=== PATIENT | male | born 1955 | race Caucasian/White ===

== ENCOUNTER 2021-08-24 12:36 | Outpatient (REF) | payer BC, SELFPAY ==
[2021-08-24 16:19] LABS: COVID-19 Test Negative (Negative); IDNOW Serial# 16C4AD1C
== END 2021-08-24 12:37 | disposition home or self-care (01) ==
LOC: HO.LAB 12:36
PROVIDERS: Visit Provider Internal Medicine
DX: Z20.822 Contact with and (suspected) exposure to COVID-19 (principal)
CPT/HCPCS: 36415; 87635; C9803

== ENCOUNTER 2023-04-16 19:45 | Emergency (ER) | payer BC, SELFPAY ==
--- NOTE | ~2023-04-16 | CT_ITS ---
EXAMINATION: NONCONTRAST HEAD CT NONCONTRAST CERVICAL SPINE CT INDICATION INFORMATION: Fall with head strike COMPARISON: None TECHNIQUE: Separate noncontrast CT examinations of the head and cervical spine were performed. Coronal and sagittal images were created for each examination at the technologist workstation. This CT examination was performed using dose optimization techniques as appropriate, variously including the following: *Automated exposure control *Adjustment of mA and/or kV according to patient size (this includes techniques or standardized protocols for targeted exams where dose is matched to indication/reason for exam; i.e. extremities or head) *Use of iterative reconstruction technique DLP: 1111 mGy-cm FINDINGS: Head: There is no evidence of acute intracranial hemorrhage or territorial infarction. No abnormal mass effect or midline shift is seen. Pina to white matter differentiation is well preserved. No extra-axial fluid collections are identified. No hydrocephalus. No significant volume loss. There is no abnormal attenuation within the brain parenchyma. No acute osseous or soft tissue abnormality. The mastoid air cells are well aerated. Moderate diffuse paranasal sinus opacification. Cervical spine: There is anatomic alignment of the vertebral bodies and posterior elements. The atlantoaxial and atlantooccipital articulations are intact. Vertebral body heights and intervertebral disc spaces are maintained. No evidence of acute fracture. No prevertebral soft tissue swelling. Mild emphysema noted at the lung apices. Calcification in the right lobe of the thyroid gland. The thyroid gland is otherwise unremarkable. CT/CT cervical spine wo IV con IMPRESSION: 1. No acute intracranial finding. 2. No fracture or malalignment of the cervical spine.
--- NOTE | ~2023-04-16 | XR_ITS ---
EXAMINATION: XR hand RT 2V, XR elbow RT 2V CLINICAL INFORMATION: Reason for Exam fall COMPARISON: None. TECHNIQUE: 2 views, 3 images of the right elbow and 3 views of the right hand. FINDINGS: Right elbow: Mild diffuse osteopenia is noted involving all the visualized bones. The bony alignments are intact. The cortices are intact. Enthesopathy is noted at the insertional site of the triceps tendon to the olecranon process. No evidence of any joint effusion. Mild osteoarthropathy at the humeroulnar joint. Right hand: Mild diffuse osteopenia. Bony alignments are intact. The cortices are intact. Soft tissues are unremarkable. No radiopaque foreign body. XR/XR hand RT 2V IMPRESSION: 1. Mild diffuse osteopenia. 2. No radiographic evidence of any displaced fracture at the right elbow and right hand. 3. Incidental note is made of presence of enthesopathy at the insertional site of the triceps tendon to the olecranon process. 4. Mild osteoarthropathy of the humeroulnar joint.
--- NOTE | ~2023-04-16 | CT_ITS ---
EXAMINATION: NONCONTRAST HEAD CT NONCONTRAST CERVICAL SPINE CT INDICATION INFORMATION: Fall with head strike COMPARISON: None TECHNIQUE: Separate noncontrast CT examinations of the head and cervical spine were performed. Coronal and sagittal images were created for each examination at the technologist workstation. This CT examination was performed using dose optimization techniques as appropriate, variously including the following: *Automated exposure control *Adjustment of mA and/or kV according to patient size (this includes techniques or standardized protocols for targeted exams where dose is matched to indication/reason for exam; i.e. extremities or head) *Use of iterative reconstruction technique DLP: 1111 mGy-cm FINDINGS: Head: There is no evidence of acute intracranial hemorrhage or territorial infarction. No abnormal mass effect or midline shift is seen. Pina to white matter differentiation is well preserved. No extra-axial fluid collections are identified. No hydrocephalus. No significant volume loss. There is no abnormal attenuation within the brain parenchyma. No acute osseous or soft tissue abnormality. The mastoid air cells are well aerated. Moderate diffuse paranasal sinus opacification. Cervical spine: There is anatomic alignment of the vertebral bodies and posterior elements. The atlantoaxial and atlantooccipital articulations are intact. Vertebral body heights and intervertebral disc spaces are maintained. No evidence of acute fracture. No prevertebral soft tissue swelling. Mild emphysema noted at the lung apices. Calcification in the right lobe of the thyroid gland. The thyroid gland is otherwise unremarkable. CT/CT head/brain wo IV con IMPRESSION: 1. No acute intracranial finding. 2. No fracture or malalignment of the cervical spine.
--- NOTE | ~2023-04-16 | XR_ITS ---
EXAMINATION: XR hand RT 2V, XR elbow RT 2V CLINICAL INFORMATION: Reason for Exam fall COMPARISON: None. TECHNIQUE: 2 views, 3 images of the right elbow and 3 views of the right hand. FINDINGS: Right elbow: Mild diffuse osteopenia is noted involving all the visualized bones. The bony alignments are intact. The cortices are intact. Enthesopathy is noted at the insertional site of the triceps tendon to the olecranon process. No evidence of any joint effusion. Mild osteoarthropathy at the humeroulnar joint. Right hand: Mild diffuse osteopenia. Bony alignments are intact. The cortices are intact. Soft tissues are unremarkable. No radiopaque foreign body. XR/XR elbow RT 2V IMPRESSION: 1. Mild diffuse osteopenia. 2. No radiographic evidence of any displaced fracture at the right elbow and right hand. 3. Incidental note is made of presence of enthesopathy at the insertional site of the triceps tendon to the olecranon process. 4. Mild osteoarthropathy of the humeroulnar joint.
[2023-04-16 20:03] VITALS: BP 135/71; BP 140/86; PULSE 81; PULSE 82; RESP 16; TEMP 36.6; O2SAT 97; O2SAT 98; BMI 25.8
[2023-04-16 20:08] VITALS: BP 135/71; PULSE 81; RESP 16; TEMP 36.6; O2SAT 97
--- NOTE | 2023-04-16 20:10 | PC.NURSE ---
Pt presents to ER via EMS after falling from a ladder, approx 6 feet. Pt was doing housework when he mis-stepped and fell. Pt reports he hit his head and lost consciousness for a few seconds. Pt fell in a similar fashion once five years ago. EMS placed pt in c-collar and sling/swath. Pt is A&Ox4, GCS 15, with warm, dry skin. Pt reports pain in his right elbow and the right side of his head. Upon inspection, I found a laceration present on the right elbow, a small laceration on the right eyebrow, an abrasion on the right side of his head, and a laceration on the right index finger. Bleeding is controlled at this time. Pt states he believes he may have been holding a screwdriver when he fell, resulting in the laceration on his finger. Pt states it feels like something may be stuck in his finger. Pt does not think his tetanus shot is up to date. Pt is resting in bed at this time, waiting ED provider.
--- NOTE | 2023-04-16 21:43 | PC.NURSE ---
Pt insisted on getting up to use the bathroom. It was explained that he should not be getting up since he is not cleared for c-spine, but pt got up and out of bed anyways. Pt ambulating with no complications, steady gait, good balance.
[2023-04-16] MEDS: Diphth,Pertus(ACell),Tet Adult 0.5 ML SYRINGE IM (22:59)
--- NOTE | 2023-04-16 23:22 | ED_ITS ---
HPI - Fall General Chief Complaint: Fall Stated Complaint: fall from ladder 6ft. Potential head strike Time Seen by Provider: 04/16/23 21:57 Source: patient and EMS Mode of arrival: EMS Limitations: no limitations History of Present Illness HPI Narrative: 67-year-old male not on blood thinning medications presents after an accidental fall. Patient fell from approximately 6 ft ladder. He did hit his head. A nicolás ef loss of consciousness. Predominant complains of right elbow and right hand pain. The pain is moderate nature. Worse with palpation and movement. The pain does not radiate. There is no numbness or tingling. He also had a cut which he believes service from a nail. His tetanus vaccination is not up-to-date. Patient denies any neck pain or headache. He has no nausea vomiting. Denies any focal neurologic deficits. Related Data Allergies Allergy/AdvReac Type Severity Reaction Status Date / Time No Known Allergies Allergy Unverified 05/15/20 18:55 [No Known Allergies*] Review of Systems Review of Systems: CONSTITUTIONAL: Denies weight loss, fever and chills. HEENT: Denies changes in vision and hearing. RESPIRATORY: Denies SOB and cough. CV: Denies palpitations no CP. GI: Denies abdominal pain, nausea, vomiting and diarrhea. : Denies dysuria and urinary frequency. MSK: + myalgia and joint pain. SKIN: Denies rash and pruritus. NEUROLOGICAL: Denies headache and syncope. PSYCHIATRIC: Denies recent changes in mood. Denies anxiety and depression. All other ROS are negative unless in [facility]PI [facility] Social History Social History Alcohol intake: current Alcohol intake frequency: 0-2 drinks per day Alcohol type: wine Smoked in Last 30 Days: No Use of substances other than those prescribed or required for medical reasons: No Advance Directives: Yes Advance Directives Information Provided: Yes Advance Directives on File: No Physical Exam Vital Signs: Vital Signs: Last Vital Signs Temp 98 F 04/16/23 20:08 Pulse 81 04/16/23 20:08 Resp 16 04/16/23 20:08 BP 135/71 04/16/23 20:08 Pulse Ox 97 04/16/23 20:08 O2 Del Method Room Air 04/16/23 20:08 BMI result Body Mass Index 25.8 GEN: Well developed, no acute distress, alert, oriented HEENT: Normocephalic, atraumatic, normal external ears, nose appears normal, no oropharyngeal edema or exudates Eyes: Normal to appearance Neck: Cervical collar in place, no midline tenderness Respiratory: Talks in complete sentences, no respiratory distress, clear to auscultation bilaterally Cardiovascular: Regular rate and rhythm, no murmurs rubs or gallops Abdomen: Soft, nontender, nondistended, no guarding, no rebound Back: No CVA tenderness Extremities: No clubbing cyanosis or edema Neurologic: No focal neurologic deficits, cranial nerves 2-12 intact, strength is 5/5 bilaterally Skin: No rash Course Course Course Narrative: The workup is complete. CT scan head and cervical spine was negative for acute traumatic injury. X-rays do not show any fractures or subluxation. He does have a superficial laceration to his right 1st digit. There is no indication for suturing. He will watch for signs of infection including redness, swelling, pain or purulent drainage. He will keep a bandage in apply bacitracin. His tetanus vaccination was up-to-date. Medications Administered Discontinued Medications Generic Name Dose Route Start Last Admin Trade Name Freq PRN Reason Stop Dose Admin Diphtheria/Tetanus/Acell Pertussis 0.5 ml 04/16/23 22:34 04/16/23 22:59 Diphth,Pertus(Acell),Tet Adult 0.5 Ml Syringe IM 04/16/23 22:35 0.5 ml .ONCE ONE Administration Medical Decision Making Medical Decision Making [facility] Narrative: 67-year-old male presents after fall from 6 ft. Examination revealed a abrasion or laceration to the right hand, abrasion to the right forehead. He did hit his head and had a brief loss of consciousness. CT scan of the head and cervical spine a been ordered. Will also make sure orders for right elbow and right hand were obtained as well. Will update patient's tetanus vaccination. Differential diagnosis includes intracranial bleeding, subdural hematoma, epidural hematoma, subarachnoid hemorrhage, fracture, sprain, strain, contusion. Differential Diagnosis Differential Diagnoses: The differential diagnosis associated with the presentation includes (See above) Admission/Observation Consideration of admission/observation: Escalation of care including admission/observation considered Independent Interpretation I performed an independent interpretation of an: Plain X-Ray (Right hand no fracture, right elbow no fracture) and CT Scan Interpretation: Head: No acute traumatic injury, cervical spine: No acute traumatic injury Radiology Impression Discussion of test interpretation with radiology: I have reviewed the radiologist's reading. Radiologist Impression: CT/CT cervical spine wo IV con IMPRESSION: 1.? No acute intracranial finding. 2.? No fracture or malalignment of the cervical spine. ? Dictated By: Eamon Elizondo MD Signed By: <Electronically signed by Eamon Elizondo MD in OV> 04/16/23 [id number] Independent Historian Clinical information obtained from an independent historian. History obtained from or confirmed by: Other (Daughter) Prescription Management I considered prescription management with: Pain Medication Discharge Plan Discharge Clinical Impression: Fall from ladder, Acute head injury, Musculoskeletal pain Patient Disposition: Home, Self-Care Instructions: Head Injury (ED), Musculoskeletal Pain (ED) Referrals: Physician,Unknown J [Primary Care Provider] - (Primary care provider in 1 week if needed)
[2023-04-16] MEDS: Acetaminophen 325 MG TABLET 975 MG PO (23:41)
[2023-04-16] MEDS: Ibuprofen 600 MG TABLET PO (23:41)
== END 2023-04-16 23:48 | disposition home or self-care (01) ==
PROVIDERS: Emergency Provider Emergency Medicine
DX: S09.90XA Unspecified injury of head, initial encounter (principal); S00.81XA Abrasion of other part of head, initial encounter; S61.210A Laceration without foreign body of right index finger without damage to nail, initial encounter; W11.XXXA Fall on and from ladder, initial encounter; M79.18 Myalgia, other site; Y93.9 Activity, unspecified; Y92.019 Unspecified place in single-family (private) house as the place of occurrence of the external cause; Y99.9 Unspecified external cause status
CPT/HCPCS: 70450; 72125; 73070; 73120; 90471; 90715; 99284

== ENCOUNTER 2023-04-20 09:05 | Emergency (ER) | payer BC, SELFPAY ==
[2023-04-20 09:10] VITALS: BP 130/59; PULSE 74; RESP 19; TEMP 36.6; O2SAT 98; BMI 25.8
[2023-04-20 09:56] LABS: MANUAL DIFF FLAG NO
[2023-04-20 10:00] LABS: Basophils Absolute Auto 0.1 X10*3/uL (0.0-0.2); Basophils Percent Auto 0.6 % (0-2); Eosinophils Absolute Auto 0.1 X10*3/uL (0.0-0.4); Eosinophils Percent Auto 1.1 % (0-4); Hemoglobin 13.7 g/dl (14.0-18.0); Imm Gran Abs Auto 0.03 X10*3/uL (0.00-0.03); Imm Gran Pct Auto 0.4 % (0.0-0.4); Lymphocytes Absolute Auto 1.4 X10*3/uL (1.2-4.9); Lymphocytes Percent Auto 16.3 % (20-40); Mean Corpuscular HGB Conc 33.4 g/dl (31.0-36.0); Mean Corpuscular Hemoglobin 30.3 pg (27.0-33.0); Mean Corpuscular Volume 90.7 fL (80.0-98.0); Mean Platelet Volume 9.7 fL (9.4-12.4); Monocytes Absolute Auto 0.8 X10*3/uL (0.1-1.2); Monocytes Percent Auto 9.7 % (2-11); Neutrophils Percent Auto 71.9 % (45-73); Platelet Count 245 X10*3/uL (160-400); Red Blood Count 4.52 X10*6/uL (4.60-5.80); Red Cell Distribution Width 12.8 % (11.0-16.0); White Blood Count 8.4 X10*3/uL (4.8-10.8)
--- NOTE | 2023-04-20 10:00 | ED_ITS ---
HPI - Extremity Injury (Upper) General Chief Complaint: Wound/Laceration Stated Complaint: R hand wound, infection Time Seen by Provider: 04/20/23 09:39 Source: patient and old records reviewed Mode of arrival: ambulatory Limitations: no limitations History of Present Illness HPI narrative: 67-year-old male presents to the ER for evaluation of right index finger swelling, pain, limited mobility after an injury 4 days ago. Patient was seen here on April 16 after he fell 60 off of a ladder. He had head strike and LOC, injuries to his right elbow and right hand. there was a superficial laceration to his right 1st digit that did not require suturing at the time. He was given a tetanus shot and told to apply bacitracin. He reports increased swelling, redness and pain of the 1st right digit, prompting evaluation by his PCP yesterday. He states he was started on ibuprofen, Tylenol, antibiotics of which she took last night and this morning. He was told to come to the ER if he had worsening symptoms. He denies any fever or chills at home. complaint: injury to: right, hand and finger Onset (ago): day(s) Other Extremity Injury: right: fingers and hand Other injuries: head Place: home Severity: moderate Severity scale (1-10): 7 Relieving factors: immobilization Exacerbating factors: movement of extremity Context: fall Associated symptoms: denies other symptoms Treatments prior to arrival: NSAIDS Related Data Previous Rx's Medication Instructions Recorded cephalexin 500 mg capsule 500 mg PO DAILY #10 caps 04/20/23 doxycycline hyclate 100 mg tablet 100 mg PO BID #20 tabs 04/20/23 Allergies Allergy/AdvReac Type Severity Reaction Status Date / Time No Known Allergies Allergy Unverified 05/15/20 18:55 [No Known Allergies*] [facility] Social History Social History Alcohol intake: current Alcohol intake frequency: 0-2 drinks per day Alcohol type: wine Advance Directives: No Advance Directives Information Provided: Yes Physical Exam Vital Signs: Vital Signs: Last Vital Signs Temp 98 F 04/20/23 09:10 Pulse 74 04/20/23 09:10 Resp 19 04/20/23 09:10 BP 130/59 L 04/20/23 09:10 Pulse Ox 98 04/20/23 09:10 O2 Del Method Room Air 04/20/23 09:10 BMI result Body Mass Index 25.8 Appearance: Alert. Oriented X3. No acute distress. HEENT: normal inspection CVS: Normal heart rate and rhythm. Pulses normal. Respiratory: No respiratory distress. Skin: Skin warm and dry. Normal skin color. Normal skin turgor. No rashes. Extremities: right 1st digit is swollen, slightly erythematous and held in passive flexion position. superfiicial oozing laceration to the palmar side at the PIP, no fluctuance or drainge of pus. erythema extends to the 1st MCP on the dorsal and palmar sides of the hand. limited flexion of the 1st digit due to swe lling and pain. unable to fully extend. cap refill <3 sec. no sensory deficits. Neuro: Oriented X 3. No motor deficit. No sensory deficit. Medical Decision Making Medical Decision Making [facility] Narrative: 67-year-old male presents to the ER for evaluation of worsening right index finger pain, swelling, redness limited range of motion for the last few days after he fell and injured the finger on 04/16. finger appears to be infected with erythema, warmth, tenderness. He has limited range of motion. Lab workup today showing no leukocytosis. WBC 8.4. Normal sed rate. His CRP is elevated at almost 5. Lab work otherwise unremarkable. He had x-rays the other day showing no acute fracture. He has taken 2 doses of Keflex so far. He does not appear to be septic from this. Case was discussed with the lesion from Orthopedics. At this time we will plan to increase Keflex 2 q.6 hours, add doxycycline b.i.d. and have him follow-up closely with orthopedic/hand. Patient was given wound care instructions and strict return precautions. At this time comfortable discharge home with oral antibiotics and close outpatient follow-up. Patient agrees with plan. Differential Diagnosis Differential Diagnoses: The differential diagnosis associated with the presentation includes cellulitis, abscess, tenosynovitis, open fracture Admission/Observation Consideration of admission/observation: Escalation of care including admission/observation considered considered admission for IV abx Consult Healthcare Provider Management of the patient was discussed with: Assistant Hairstylist Chantal from [facility] Lab Data [facility] Lab Attestation statement: I reviewed the patient's lab results. No leukocytosis 04/20/23 09:51 04/20/23 09:51 Labs: Lab Results 04/20/23 04/20/23 04/20/23 Range/Units 09:51 09:51 09:51 WBC 8.4 (4.8-10.8) X10*3/uL RBC 4.52 L (4.60-5.80) X10*6/uL Hgb 13.7 L (14.0-18.0) g/dl Hct 41.0 L (42.0-52.0) % MCV 90.7 (80.0-98.0) fL MCH 30.3 (27.0-33.0) pg MCHC 33.4 (31.0-36.0) g/dl RDW 12.8 (11.0-16.0) % Plt Count 245 (160-400) X10*3/uL MPV 9.7 (9.4-12.4) fL Immature Gran % (Auto) 0.4 (0.0-0.4) % Neut % (Auto) 71.9 (45-73) % Lymph % (Auto) 16.3 L (20-40) % [place] % (Auto) 9.7 (2-11) % Eos % (Auto) 1.1 (0-4) % Baso % (Auto) 0.6 (0-2) % Lymph # (Auto) 1.4 (1.2-4.9) X10*3/uL [place] # (Auto) 0.8 (0.1-1.2) X10*3/uL Eos # (Auto) 0.1 (0.0-0.4) X10*3/uL Baso # (Auto) 0.1 (0.0-0.2) X10*3/uL Abs Immat Gran (auto) 0.03 (0.00-0.03) X10*3/uL Absolute Neuts (auto) 6.0 (2.0-8.3) x10*3/uL Absolute Nucleated RBC 0.000 (0.0-0.012) X10*3/uL Nucleated RBC % (auto) 0.0 (0.0-0.2) /100WBC ESR 7 (0-15) MM/HR Sodium 138 (135-145) mmol/L Potassium 4.2 (3.3-5.1) mmol/L Chloride 106 (96-108) mmol/L Carbon Dioxide 25 (22-29) mmol/L Anion Gap 11 L (12-20) BUN 12 (9-16) mg/dL Creatinine 0.76 (0.5-1.4) mg/dL Estim Creat Clear Calc 93.7 Estimated GFR > 60 Random Glucose 116 H (60-115) mg/dL Calcium 9.5 (8.4-10.2) mg/dL C-Reactive Protein 4.92 H (< or = 0.50) mg/dL Radiology Impression Discussion of test interpretation with radiology: I have reviewed the radiologist's reading. Radiologist Impression: XR/XR hand RT 2V IMPRESSION: ? 1. Mild diffuse osteopenia. 2. No radiographic evidence of any displaced fracture at the right elbow and right hand. 3. Incidental note is made of presence of enthesopathy at the insertional site of the triceps tendon to the olecranon process. 4. Mild osteoarthropathy of the humeroulnar joint. External Record Review External record reviewed: Outpatient record, Prior outpatient labs and Prior outpatient radiology Prescription Management I considered prescription management with: Pain Medication and Antibiotic Critical Care Time Critical Care Time Critical Care Time: No Discharge Plan Discharge Clinical Impression: Infected finger Patient Disposition: Home, Self-Care Instructions: Cellulitis (DC) Additional Instructions: Your lab workup today was reassuring. Recommend increasing your cephalexin to 500 mg every 6 hours. Additional cephalexin has been sent to your pharmacy. Also recommend adding doxycycline 1 tablet every 12 hours for the next 10 days. Use warm soaks with soapy water or Epsom salts 2-3 times per day. Elevate the hand when possible. Take ibuprofen and Tylenol as prescribed previously for pain control. Call the orthopedic office today to arrange an appointment to be seen within the next 1 week for close follow-up. If you develop new or worsening symptoms call 911 or come back to the ER for further evaluation. Prescriptions: New doxycycline hyclate 100 mg tablet 100 mg PO BID Qty: 20 0RF cephalexin 500 mg capsule 500 mg PO DAILY Qty: 10 0RF Referrals: [facility] Orth[facility] Surgeons [Provider Group] (cellulitis vs tenosynovitis of 1st right digit) Interventions: ED Discharge Assessment Last Done: 04/20/23 11:09 Discharge Date/Time: 04/20/23 11:09
[2023-04-20 10:15] LABS: Anion Gap 11 (12-20); Blood Urea Nitrogen 12 mg/dL (9-16); C Reactive Protein 4.92 mg/dL (< or = 0.50); Calcium 9.5 mg/dL (8.4-10.2); Carbon Dioxide 25 mmol/L (22-29); Chloride 106 mmol/L (96-108); Creatinine Clr Calc Pharmacy 93.7; Estimated Glomerular Filt Rate > 60; Glucose Random 116 mg/dL (60-115); Potassium 4.2 mmol/L (3.3-5.1); Sodium 138 mmol/L (135-145)
[2023-04-20 10:58] LABS: Erythrocyte Sedimentation Rate 7 MM/HR (0-15)
== END 2023-04-20 11:09 | disposition home or self-care (01) ==
PROVIDERS: Physician Assistant; Emergency Provider Emergency Medicine; PCP Internal Medicine
DX: S61.210A Laceration without foreign body of right index finger without damage to nail, initial encounter (principal); L08.9 Local infection of the skin and subcutaneous tissue, unspecified; W11.XXXA Fall on and from ladder, initial encounter; Y93.9 Activity, unspecified; Y92.9 Unspecified place or not applicable; Y99.9 Unspecified external cause status; Z79.899 Other long term (current) drug therapy
CPT/HCPCS: 36415; 80048; 85025; 85652; 86140; 99282; 99283

== ENCOUNTER 2023-04-26 11:45 | Outpatient (AMB) | payer BC, SELFPAY ==
--- NOTE | 2023-04-26 12:01 | A.OFFVIS_ITS ---
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 States he fell 6' ft of a ladder.? Reports he injured right hand.? States he has a superficial laceration to his right 1st digit.? Seen in ED where xrays were taken, given a tetanus shot and told to apply bacitracin.? Today he reports swelling, redness and pain of the 1st right digit with movement. Also seen with his PCP who Rx'd him ABX. 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 He says he fell off of a ladder on 04/16/23, lacerating his index finger and catching in on the ladder.. He was seen in the ED for Tetanus shot and told to apply Bacitracin. He has been seen by his PCP who prescribed oral Abx. He denies having any kind of dislocation. Today he complains of pain, swelling, and stiffness in his index finger. He denies any symptoms of infection and continues to take his oral Abx. He says he injured his hand in the past, and OT provided him with some equipment to work on ROM at home. 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 Review of Systems Const All systems reviewed & are unremarkable except as noted in HPI and below Physical Exam Vital Signs: BMI result Body Mass Index 25.8 Const General: no acute distress and alert Orientation/consciousness: patient oriented x3 Neuro General: patient oriented x3 Extrem Other: Evaluation of Right Upper Extremity: The patient is alert, oriented, and in no acute distress Neuro: Median, Ulnar, Radial nerves motor and sensory intact and sensation is normal to the tips of all digits Vascular: Cap refill brisk General and range of motion: He has significant index finger stiffness, with some stiffness in his other digits Ater work on ROM exercises in clinic, he could actively bring the tip of his index finger to about 1-2 cm from his palm, passively bring his index fingertip to the thenar eminence and actively back into extension Mild PIP joint flexion contracture but he can place his hand flat on the table Intact FDP & FDS tendon function Normal sensation in the radial digital nerve and ulnar digital nerve distribution He initially had some more mild stiffness in the middle ring and small fingers, but after working on range of motion exercises he could easily actively bring these fingers close to a fist and back into full extension He has a small healing wound, ~8mm diameter somewhat triangularly shaped over the ulnar volar aspect of the index finger PIP flexion crease Healing, no drainage mild swelling mostly between PIP & MCP joints of the index finger Not particularly tender over the PIP or DIP joint, joints stable on exam Possible PIP and/or MCP joint sprain Psych Appearance: grossly normal Affect: normal affect Attitude: cooperative Assessment & Plan Assessment & Plan (1) Sprain of right index finger: Code(s): S63.610A - Unspecified sprain of right index finger, initial encounter (2) Stiffness of finger joint: Code(s): M25.649 - Stiffness of unspecified hand, not elsewhere classified (3) Laceration of right index finger: Code(s): S61.210A - Laceration without foreign body of right index finger without damage to nail, initial encounter Plan Assessment & Plan: 1. Right index finger laceration, healing Measuring ~8mm in diameter over the ulnar volar aspect of the PIP flexion crease 2. Right index finger PIP and/or MCP joint sprain 3. Right index finger stiffness Secondary to injury Good FDP & FDS tendon function & normal sensation DOI: 04/16/23, falling off a ladder I educated him about this condition and proper wound care He has been taking his oral Abx as instructed and has no evidence of infection. He will finish his Abx I discussed the signs of infection, if he develops any new erythema, drainage, warmth, or pain he should contact the clinic or attend the ED I demonstrated ROM exercises for him to perform at home 20X daily. His goal is to make a full fist within the next week. He will discontinue his splint at this time I ordered OT hand therapy to work on ROM and normalizing function He was given a note for work restricting him to light duty, with a 2lb weight limit with his RUE, for the next 2-3 weeks He will follow up in 2-3 weeks for a wound & ROM check. This can be done with a PA Scribed for Kassandra Kline MD by Earl Parker, medical record administrator, on 04/26/23 at 12:25 PM, EST. Orders: Orders OT Evaluation and Treatment Today M25.649 - Stiffness of unspecified hand, not elsewhere classified, S63.610A - Unspecified sprain of right index finger, initial encounter Coding Level of Care Code New Pt Level 3 (32032) Diagnoses Sprain of right index finger S63.610A Stiffness of finger joint M25.649 Laceration of right index finger S61.210A
[2023-04-26 12:07] VITALS: BMI 25.8
== END 2023-04-26 12:56 | disposition home or self-care (01) ==
PROVIDERS: PCP Internal Medicine; Visit Provider Orthopaedic Surgery
DX: S63.610A Unspecified sprain of right index finger, initial encounter (principal); M25.649 Stiffness of unspecified hand, not elsewhere classified; S61.210A Laceration without foreign body of right index finger without damage to nail, initial encounter
CPT/HCPCS: 99203

== ENCOUNTER → 2023-04-26 11:45 | Outpatient (BNVA) | payer BC, SELFPAY | PROVIDERS: PCP Internal Medicine; Visit Provider Orthopaedic Surgery ==